=== PATIENT | female | born 1955 | race Two or more races ===

== ENCOUNTER → 2024-06-06 | Outpatient (CLI) | payer MEDICARE, SELFPAY ==
[2024-06-06 10:46] LABS: Collection Type, Urine Clean Catch; RBC,Urine 0 /hpf (0-3)
[2024-06-06 11:27] LABS: Basophils % (Auto) 1 % (0-2.5); Eosinophils # (Auto) 0.2 Thou/mm3 (0.0-0.5); Eosinophils % (Auto) 3 % (0-10); Hematocrit 39.1 % (36.0-46.0); Hemoglobin 13.2 g/dL (12.0-16.0); Immature Granulocytes % (Auto) 1 % (0-0); Immature Granulocytes Auto 0.03 Thou/mm3 (0.00-0.00); Lymphocytes # (Auto) 2.5 Thou/mm3 (1.0-4.8); Lymphocytes % (Auto) 39 % (10-50); Mean Corpuscular HGB Conc 33.8 g/dl (31.0-37.0); Mean Corpuscular Hemoglobin 32.1 pg (25.0-35.0); Mean Corpuscular Volume 95 fL (80-100); Monocytes # (Auto) 0.4 Thou/mm3 (0.0-0.8); Monocytes % (Auto) 6 % (0-12); Neutrophils # (Auto) 3.3 Thou/mm3 (1.8-7.7); Neutrophils % (Auto) 51 % (37-80); Nucleated Red Blood Cell % 0 /100 WBC (0); Platelet Count 281 Thou/mm3 (140-440); Red Blood Count 4.11 Miln/mm3 (4.00-5.20); White Blood Count 6.5 Thou/mm3 (3.6-11.0)
[2024-06-06 11:37] LABS: Bilirubin,Urine Negative (Negative); Blood,Urine Negative (Negative); Clarity,Urine Clear (Clear/Hazy); Color,Urine Yellow (Lt Yel-Yel); Glucose, Urine Negative (Negative); Ketones,Urine Negative (Negative); Leukocyte Esterase,Urine Positive (Negative); Nitrite,Urine Negative (Negative); PH,Urine 5.5 (5.0-7.0); Protein,Urine Trace (Neg - Trace); Specific Gravity,Urine 1.029 (1.001-1.035); Squamous Epithelial Cell,Urine 1 /hpf (0-5); Urobilinogen,Urine Negative mg/dL (0.0-1.0); WBC,Urine 2 /hpf (0-5)
[2024-06-06 11:37] LABS: Glucose Estimated Average 128 mg/dL (80-131); Hemoglobin A1C 6.1 % Hgb (4.8-6.0)
[2024-06-06 11:41] LABS: Alanine Aminotransferase 22 U/L (10-49); Albumin, Serum 4.5 gm/dL (3.4-4.8); Albumin/Globulin Ratio 2.3 (1.2-2.2); Alkaline Phosphatase 85 U/L (46-116); Anion Gap 6 (7-16); Aspartate Amino Transferase 16 U/L (0-34); BUN/Creatinine Ratio 21 Ratio (12-20); Bilirubin,Total 0.6 mg/dL (0.3-1.2); Blood Urea Nitrogen 15 mg/dL (9-23); Calcium 9.1 mg/dL (8.3-10.6); Calcium (Corrected) 9.1 mg/dL (8.5-10.1); Carbon Dioxide 30.6 mMol/L (20.0-31.0); Cardiac Risk Estimate 3.5 RATIO (3.7-5.6); Chloride 105 mMol/L (98-107); Cholesterol 168 mg/dL (132-200); Creatinine (Component) 0.7 mg/dL (0.6-1.3); Glucose 99 mg/dL (74-106); HDL Cholesterol 48 mg/dL (40-60); LDL Cholesterol,Calculated 92 mg/dL (0-130); Osmolality,Calculated 283 (275-295); Potassium 3.8 mMol/L (3.4-5.1); Sodium 142 mMol/L (136-145); Thyroid Stimulating Hormone 0.66 uIU/mL (0.55-4.78); Total Protein 6.5 gm/dL (5.7-8.2); Triglycerides 138 mg/dL (30-150); eGFR > 60 See Note
[2024-06-06 11:47] LABS: Microalbumin, Random Urine 6 mg/L (0-300)
[2024-06-06 11:57] LABS: Creatinine MALB Rnd Ur 259 mg/dL (30-125); Microalbumin Creat Ratio 2 mg/gCrea (<30)
== END | disposition home or self-care (01) ==
LOC: COPL 10:17
PROVIDERS: PCP Family Medicine; Referring Provider Family Medicine; Visit Provider Family Medicine
DX: Z00.00 Encounter for general adult medical examination without abnormal findings (principal); E11.9 Type 2 diabetes mellitus without complications; E78.2 Mixed hyperlipidemia; I10 Essential (primary) hypertension
CPT/HCPCS: 36415; 80053; 80061; 81001; 82043; 82570; 83036; 84443; 85025

== ENCOUNTER 2024-06-18 10:17 | Outpatient (AMB) | payer MEDICARE, SELFPAY ==
[2024-06-18 11:01] VITALS: BP 145/90; PULSE 84; RESP 19; TEMP 35.8; O2SAT 94; BMI 35.8
--- NOTE | 2024-06-18 11:01 | PD.ORTHCLVIS ---
Vital signs 06/18/24 11:01 Height 1.52 m Height Method Stated Weight 82.696 kg Weight Measurement Method Standing Scale BMI 35.8 BP 145/90 H Blood Pressure Source Automatic Cuff Blood Pressure Location Left Upper Arm Position Sitting Respiration 19 Pulse 84 Pulse Source Monitor Temp 96.5 F L Temp Source Temporal Artery Scan Pulse Oximetry (%) 94 L Oxygen Delivery Method Room Air Med/Allergies Allergies & Medications Allergies acetaminophen (From Tylenol) Allergy (Verified 06/18/24 11:01) aspirin Allergy (Verified 06/18/24 11:01) Medication Reconciliation atorvastatin 40 mg tablet 40 mg PO QDAY 02/06/24 [History Confirmed 06/18/24] calcium 600 mg (as carbonate)-vitamin D3 12.5 mcg (500 unit) capsule cap PO 02/06/24 [History Confirmed 06/18/24] gabapentin 100 mg capsule 100 mg PO TID 02/06/24 [History Confirmed 06/18/24] losartan 100 mg tablet 100 mg PO QDAY 02/06/24 [History Confirmed 06/18/24] trazodone 50 mg tablet 50 mg PO QDAY 02/06/24 [History Confirmed 06/18/24] meloxicam 7.5 mg tablet 7.5 mg PO QDAY #45 tabs 02/23/24 [Rx Confirmed 06/18/24] Exam Exam Patient is in no acute distress and is cooperative with the examination today. Breathing is nonlabored. Patient has a normal mood and affect. Bilateral extremities were evaluated and demonstrates sensation intact to light touch. Palpable pedal pulses are present. No significant edema is present. Bilateral hips were examined. The patient has no pain with log roll of the hips. Internal rotation to 30 degrees and external rotation to 30 degrees is painless. Negative FADIR. Left knee was examined today. The left knee is in reasonable alignment. Range of motion from 0-120 degrees. Knee is stable to varus and valgus as well as AP translation with <5mm. Patient has a negative McMurrays. There is no pain with patellofemoral compression and no crepitus noted. The knee is nontender to palpation. The right knee was also examined. The right knee is in [varus] alignment. Range of motion from [0-115] degrees. Knee is stable to varus and valgus as well as AP translation with <5mm. Patient has a [negative] McMurrays. There is [no] pain with patellofemoral compression and [no] crepitus noted. The knee is [tender] to palpation [medially]. Weightbearing x-rays were reviewed. This demonstrates moderate to advanced joint space narrowing Assessment and Plan Problem List (1) Arthritis of right knee: Status: Acute Plan: Patient is a 69-year-old female with right knee pain and right knee arthritis. We discussed nonoperative and operative options. She is failed conservative treatment including injections, anti-inflammatories. We discussed total knee placement is reasonable option as the pain is affecting her quality life and happiness The nature and purpose of the total knee replacement, alternative method(s) of treatment, the material risks involved, and the possibility of complications were fully explained to the patient. The patient does NOT have any of the following contraindications to TKA: - Active infection of the knee joint, OR - Active systemic bacteremia, OR - Active skin infection or open wound at surgical site, OR - Neuropathic arthritis, OR - Severe, rapidly progressive neurological disease, OR - Severe medical condition that makes risks of surgery outweigh the potential benefit The patient was told the most common risks and complications associated with a total knee replacement include, but are not limited to: blood clots in the leg, fatal pulmonary embolism, dislocation of the prosthesis, intraoperative and postoperative fractures of the femur or tibia, infection, failure of the prosthesis or grafting materials, complications from anesthesia, reactions to blood transfusions, postoperative leg length inequality, instability of the knee replacement, nerve damage or injury, vascular injury, delayed wound healing, infection, other injury or even . In addition, there are risks associated with anesthesia given during this operation. Also, the patient was told that after undergoing a total knee replacement there may still be persistent pain or disability. The patient was informed that the success of this operation in part depends upon the mechanical devices which are going to be implanted and that these devices can fail or malfunction, and may need to be repaired or replaced and there are no guarantees as to the longevity of this device or its parts and that it or its parts could fail prematurely. The patient was also notified that during the course of surgery, there may be a need to use bone graft from donors, and that any bone graft used will be carefully screened for communicable diseases, including AIDS, hepatitis, Shane-Creutzfeldt, or other diseases, but despite the screening procedures, there is a small chance that they could contract one of these diseases. Finally, the patient was asked to follow completely and fully with all advice and recommended treatments, and that recovery and ultimate outcome are affected by their compliance with recommended treatment. We discussed the risks, benefits and treatment alternatives, and the patient is interested in proceeding with surgery. We will try to set this up as expeditiously as possible. Advanced Care Planning Discussion Advance care planning discussed with:: patient Office Procedures GNS Level of Care Nursing/Assessment Patient Status: Established Patient Nursing Assessment/Reassesment: Medication Reconciliation, Update PMH in EMR and Vital Signs Coordination of Care: Complex Care and Chronic Disease 1-5, Education Complex Pt/Fam, Consent,records obtained, informed consent, Results/Orders obtained and Staff clarify orders Special Needs: Language special needs Established Patient Charge Established Patient Point Assignment: 95 Established Patient Point Charge: Level 3 (80-115) MA Intake Visit Data Collection New Patient or Established: Established Patient (seen at [facility] within 3 years) Reason for Visit:: 3 MONTH F/U R KNEE INJECTION Seen by Clinical Staff ONLY (RN/MA): No Supply Chain Engineer Required: Yes PCP or OBGYN visit in last 3 months: Yes Hx Now: No Do You Feel Safe at Home: Yes Authorities Contacted: N/A Questionairres Past Medical History Past Medical History Have you ever been diagnosed with any of the following: Cardiology Problems Hypertension: Yes Respiratory Problems Smoking: No Smoking Cessation Counseling: No Smoking Exposure: No Tobacco Use: No Clubbing: No Subjective Visit Visit for: follow up visit, knee (RIGHT) and injections Immunization / Flu Flu Vaccine in the Last 12 Months: No Flu Vaccine Exclusion Criteria: No Exclusion Criteria History of Present Illness Chief complaint: right knee pain Patient is 69-year-old female comes in today for a outpatient referral appointment for right knee. Patient has history of arthritis has been going on since September of this year she has been seen by her primary care doctor for ongoing pain and swelling to her right knee. Since being seen by her PCP she has been treated with gabapentin to 200 mg twice a day and diclofenac ointment that helps ease the pain sometimes but does not fully resolve it. She has not been treated recently with any anti-inflammatory medications. She recently had an injection in February. The injection lasted for 2 months. At this point time the pain is affecting her quality life and happiness Pain Pain level (0-10): 7 Pain duration: CONSTANT Pain location: inside (medial) and anterior Pain quality: aching Pain timing: night, increases with activity and stairs Associated signs & symptoms: none Ambulatory data Ambulatory device: cane Treatments Number of previous injections: 2 Improvement with previous injections: No Improvement with PT: No Improvement with NSAIDS: no Review of Systems Review of Systems: All systems negative unless otherwise noted in HPI.
== END 2024-06-18 11:33 | disposition home or self-care (01) ==
LOC: HODSRG 10:17
PROVIDERS: Supervising Provider Orthopaedic Surgery Adult Reconstructive Orthopaedic Surgery; Visit Provider Orthopaedic Surgery Adult Reconstructive Orthopaedic Surgery
DX: M17.11 Unilateral primary osteoarthritis, right knee (principal); M25.561 Pain in right knee; I10 Essential (primary) hypertension
CPT/HCPCS: 99213; G0463

== ENCOUNTER → 2024-06-20 | Outpatient (CLI) | payer OTHER, SELFPAY ==
--- NOTE | 2024-06-20 12:34 | EKG_ITS ---
[facility] Test Date: 2024-06-20 Pat Name: DARSHAN GUNDERSON Department: Room: - Gender: Female Lookback Coordinator: PHONG : 1955 Requested By: Best Tavera Order Number: [id number] Reading MD: Best Tavera Measurements Intervals [place] Rate: 85 P: -11 AK: 181 QRS: 2 QRSD: 86 T: 0 QT: 351 QTc: 420 Interpretive Statements SINUS RHYTHM POSSIBLE ANTERIOR MYOCARDIAL INFARCTION , PROBABLY OLD POSSIBLE INFERIOR MYOCARDIAL INFARCTION , PROBABLY OLD No previous ECG available for comparison /store/[id number].pdf
[2024-06-20 12:57] LABS: Partial Thromboplastin Time 24.2 Seconds (22.0-36.0); Prothrombin Time 10.5 Seconds (9.0-12.2)
== END | disposition home or self-care (01) ==
LOC: COPL 11:39
PROVIDERS: PCP Family Medicine; Referring Provider Orthopaedic Surgery Adult Reconstructive Orthopaedic Surgery; Visit Provider Orthopaedic Surgery Adult Reconstructive Orthopaedic Surgery
DX: I10 Essential (primary) hypertension (principal); E78.2 Mixed hyperlipidemia; E11.40 Type 2 diabetes mellitus with diabetic neuropathy, unspecified; M25.561 Pain in right knee
CPT/HCPCS: 36415; 85610; 85730; 93005

== ENCOUNTER 2024-09-19 10:27 | Day surgery (SDC) | payer OTHER, SELFPAY ==
[2024-09-17 17:41] VITALS: BMI 31.1
--- NOTE | 2024-09-18 07:00 | EKG_ITS ---
[facility] Test Date: 2024-09-18 Pat Name: DARHSAN GUNDERSON Department: Room: - Gender: Female Union Organizer: STONE : 1955 Requested By: Rock Altamirano Order Number: [id number] Reading MD: Rock Altamirano Measurements Intervals [place] Rate: 66 P: 56 AK: 222 QRS: 6 QRSD: 87 T: -1 QT: 379 QTc: 398 Interpretive Statements SINUS RHYTHM WITH FIRST DEGREE AV BLOCK LOW QRS VOLTAGE IN PRECORDIAL LEADS [QRS DEFLECTION < 1.0 mV IN CHEST LEADS] POSSIBLE ANTERIOR MYOCARDIAL INFARCTION , PROBABLY OLD [30 ms Q WAVE IN V3/V4, OR R < 0.2 mV IN V4] Compared to ECG 06/20/2024 12:38:49 First degree AV block now present Low QRS voltage now present Myocardial infarct finding still present /store/[id number].pdf
[2024-09-18 09:58] LABS: Basophils % (Auto) 1 % (0-2.5); Eosinophils # (Auto) 0.2 Thou/mm3 (0.0-0.5); Eosinophils % (Auto) 3 % (0-10); Hematocrit 39.6 % (36.0-46.0); Hemoglobin 13.3 g/dL (12.0-16.0); Immature Granulocytes % (Auto) 0 % (0-0); Immature Granulocytes Auto 0.01 Thou/mm3 (0.00-0.00); Lymphocytes # (Auto) 2.2 Thou/mm3 (1.0-4.8); Lymphocytes % (Auto) 38 % (10-50); Mean Corpuscular HGB Conc 33.6 g/dl (31.0-37.0); Mean Corpuscular Hemoglobin 32.8 pg (25.0-35.0); Mean Corpuscular Volume 98 fL (80-100); Monocytes # (Auto) 0.3 Thou/mm3 (0.0-0.8); Monocytes % (Auto) 6 % (0-12); Neutrophils % (Auto) 53 % (37-80); Nucleated Red Blood Cell % 0 /100 WBC (0); Platelet Count 285 Thou/mm3 (140-440); RDW Standard Deviation 45.5 fL (36.4-46.3); Red Blood Count 4.06 Miln/mm3 (4.00-5.20); White Blood Count 5.8 Thou/mm3 (3.6-11.0)
[2024-09-18 10:03] LABS: Partial Thromboplastin Time 25.2 Seconds (22.0-36.0); Prothrombin Time 10.6 Seconds (9.0-12.2)
[2024-09-18 10:21] LABS: Anion Gap 8 (7-16); BUN/Creatinine Ratio 19 Ratio (12-20); Blood Urea Nitrogen 13 mg/dL (9-23); Calcium 8.7 mg/dL (8.3-10.6); Carbon Dioxide 26.5 mMol/L (20.0-31.0); Chloride 107 mMol/L (98-107); Creatinine (Component) 0.7 mg/dL (0.6-1.3); Glucose 104 mg/dL (74-106); Osmolality,Calculated 281 (275-295); Potassium 3.9 mMol/L (3.4-5.1); Sodium 141 mMol/L (136-145); eGFR > 60 See Note
[2024-09-19] VITALS (14 sets, daily range): BP systolic 123–161; BP diastolic 64–92; PULSE 62–76; RESP 17–22; TEMP 36.4–36.7; O2SAT 94–98; BMI 31.4
--- NOTE | 2024-09-19 14:10 | PD.CARDCATH ---
Cardiac Cath Procedure Procedure Name Date of procedure: 09/19/2024 PROCEDURE PERFORMED: 1. Successful complex PCI of the mid LCx with a 3.0 x 15 mm Farzad INDER stent with excellent results and no residual stenosis or complications 2. Left heart cardiac catheterization including right, left coronary angiograms and left ventriculogram 2. Ultrasound-guided access of the right radial artery 3. Conscious sedation for 30 minutes FURNITURE SALES ASSOCIATE: Rock Altamirano MD Procedure Narrative HISTORY AND INDICATIONS: Ms. Dunbar is a 69 year old female with past medical history significant for HTN, HLD, T2DM diet controlled, degenerative bone disease and neuropathetic in right leg after shingles in 2022, initially presented to the office for cardiac risk evaluation for right total knee replacement surgery. Patient complained of chest pressure and palpitations. She had ischemic cardiac work up and NST showed mildly decreased uptake at the inferolateral segment, indicates possible ischemia with EF 74% and normal TID. Patient was brought in for an elective cardiac catheterization. All the risk benefits and alternatives of left heart cardiac attrition were explained in detail including the risk of bleeding, heart attack, stroke and in detail. Patient agreeable for the procedure and provided the consent. H&P updated. DESCRIPTION OF PROCEDURE: The patient was brought to the cardiac catheterization lab analysis the precautions were followed. Patient was given Versed and fentanyl for moderate conscious sedation. 2 mL of lidocaine was given in the right wrist. The right radial artery was accessed via the ultrasound guidance as well as micropuncture technique. A 6 Nigerian glide sheath was introduced. We then used a 6 Nigerian TIG 4 catheter to perform the left coronary angiogram as well as a left ventriculogram which showed the following findings. A EBU 3.5 guide catheter was used for right coronary angiogram as well as performing the PCI of the mid LCx. 1. Right dominant circulation 2. Left main artery is a large artery without any Significant disease 2. LAD arises artery with moderate stenosis in the mid LAD of 60 to 70%. Diagonal 1 with mild 20% stenosis, rest of small diagonals without any significant disease. 3. LCx is a large size artery with severe disease in the mid segment with 80-90% stenosis. OM1 and OM 2 are medium sized artery without any significant disease. 4. RCA is large size artery with mild 20-30% stenosis at the bifurcation of RPL and RPDA. 5. LVEF is normal at 55 to 60% with an LVEDP of 18 mmHg. There was no significant transvalvular aortic gradient INTERVENTION: A 6 Nigerian JL 3.5 SH guide was used to engage the right coronary artery. Patient was given weight-based heparin and ACT was greater than 250 although the procedure. Patient was loaded with aspirin 325 mg and brillinta 180 mg. Run-through guidewire was used to cross the lesion in the mid LCx without any complications. We then use a second run-through wire as sentinel wire to adjust the position of the balloon or the stent of the mid LCx lesion. A 2.5 x 15 mm balloon was used for predilatation and was predilated multiple times at 10 michael. We then used 3.0 x 15 mm Farzad INDER stent at 12 michael for a total of 40 seconds. Excellent results achieved with DELANEY-3 flow and no other complications. Final angiographic pictures were taken and all interventional equipment was removed. ACC data: Preprocedure:- mid LCx with 80 to 90% stenosis with DELANEY-3 flow Post procedure: mid LCx with 0% residual stenosis with DELANEY-3 flow A radial band was used to achieve the hemostasis of the right radial artery access. Patient will be monitored in the cardiac Obstetrical Anesthesiologist for the next 2 to 3 hours and will be discharged home later if hemodynamically stable. Complications: None Specimens: None Blood loss: Estimated 10 ML Summary/findings: 1. LHC showed severe CAD with 80-90% stenosis of mid LCx, moderate 70% stenosis of mid LAD, and mild disease of Diagonal 1 and RCA at the bifurcation of RPDA and RPL. Rest of the coronary arteries showed no significant disease. 2. LVEF was normal at 55 to 60% with normal LVEDP. No significant transvalvular aortic gradient noted. 3. Successful complex PCI performed of the mid LCx with 3.0 x 15 mm Farzad INDER stent with excellent results and no complications. Recommendations: 1. Recommended dual antiplatelet therapy with aspirin 81 mg once daily lifetime and Brilinta 90 mg twice daily for at least 1 year. High intensity statin and beta-blockers to be continued 2. Recommend aggressive risk factor modification 3. Patient recommended not to lift any weight more than 5 to 10 pounds for the next 7 days and follow-up with me in the office in 7 days. Rock Altamirano MD Interventional Cardiology.
--- NOTE | 2024-09-19 14:29 | PC.NURSE ---
1429 patient is awake, alert, breathing unlabored, TR band present to right wrist, no bleeding or hematoma noted. Report received from Meka ARMANDO, patient to recover for 4 hrs. May start removing air from TR band 1628, 2hr post hemostais time. Start brilinta tonight and then BID. Continue aspirin tomorrow.
--- NOTE | 2024-09-19 16:39 | PC.NURSE ---
1615 patient is awake, alert, breathing unlabored, able to tolerate sandwich with no nausea or vomiting, TR band to right wrist, no bleeding or hematoma noted, report given to Jose Guadalupe ARMANDO.
[2024-09-19] MEDS: TICAGRELOR 90 MG TABLET PO (18:26)
--- NOTE | 2024-09-19 18:52 | PC.NURSE ---
90mg Brilinta po given to patient before discharge, Patient and son informed to go to [facility] office tomorrow 09/20/24 at 9am
== END 2024-09-19 18:40 | disposition home or self-care (01) ==
PROVIDERS: PCP Family Medicine; Referring Provider Internal Medicine Cardiovascular Disease; Visit Provider Internal Medicine Cardiovascular Disease
PROC: (CPT 93458; principal; 2024-09-19 12:30)
DX: I25.119 Atherosclerotic heart disease of native coronary artery with unspecified angina pectoris (principal); Z01.810 Encounter for preprocedural cardiovascular examination; I10 Essential (primary) hypertension; E78.5 Hyperlipidemia, unspecified; E11.9 Type 2 diabetes mellitus without complications
CPT/HCPCS: 93458; C9600; 36415; 80048; 85025; 85347; 85610; 85730; 93005; 99152; 99153; A4649; C1725; C1769; C1874; C1887; C1894; J0153; J0171; J0282; J0461; J1643; J2250; J2310; J2371; J3010; J3490; A9270

== ENCOUNTER → 2024-10-21 | Outpatient (CLI) | payer MEDICARE, MEDICAID, SELFPAY ==
[2024-10-21 09:43] LABS: Alanine Aminotransferase 19 U/L (10-49); Albumin, Serum 4.3 gm/dL (3.4-4.8); Alkaline Phosphatase 68 U/L (46-116); Anion Gap 11 (7-16); BUN/Creatinine Ratio 24 Ratio (12-20); Bilirubin,Total 0.5 mg/dL (0.3-1.2); Blood Urea Nitrogen 17 mg/dL (9-23); Calcium 9.1 mg/dL (8.3-10.6); Calcium (Corrected) 9.1 mg/dL (8.5-10.1); Carbon Dioxide 25.9 mMol/L (20.0-31.0); Cardiac Risk Estimate 2.8 RATIO (3.7-5.6); Chloride 108 mMol/L (98-107); Cholesterol 129 mg/dL (132-200); Creatinine (Component) 0.7 mg/dL (0.6-1.3); Globulin 2.2 gm/dL (2.3-3.5); Glucose 105 mg/dL (74-106); HDL Cholesterol 46 mg/dL (40-60); LDL Cholesterol,Calculated 58 mg/dL (0-130); Osmolality,Calculated 290 (275-295); Potassium 3.8 mMol/L (3.4-5.1); Sodium 145 mMol/L (136-145); Total Protein 6.5 gm/dL (5.7-8.2); Triglycerides 123 mg/dL (30-150); eGFR > 60 See Note
[2024-10-21 10:20] LABS: Glucose Estimated Average 123 mg/dL (80-131); Hemoglobin A1C 5.9 % Hgb (4.8-6.0)
== END | disposition home or self-care (01) ==
LOC: COPL 08:13
PROVIDERS: PCP Family Medicine; Referring Provider Family Medicine; Visit Provider Internal Medicine Cardiovascular Disease
DX: E11.40 Type 2 diabetes mellitus with diabetic neuropathy, unspecified (principal); E78.2 Mixed hyperlipidemia; I10 Essential (primary) hypertension
CPT/HCPCS: 36415; 80053; 80061; 83036

== ENCOUNTER 2025-02-04 14:11 | Outpatient (AMB) | payer MEDICARE, MEDICAID, SELFPAY ==
--- NOTE | 2025-02-04 14:16 | PD.ORTHCLVIS ---
Vital signs 02/04/25 14:22 Height 1.52 m Height Method Measured Weight 79.124 kg Weight Measurement Method Standing Scale BMI 34.2 BP 107/67 Blood Pressure Source Automatic Cuff Blood Pressure Location Left Upper Arm Position Sitting Respiration 20 Pulse 79 Pulse Source Monitor Temp 98.3 F Temp Source Temporal Artery Scan Pulse Oximetry (%) 96 Oxygen Delivery Method Room Air Med/Allergies Allergies & Medications Allergies acetaminophen (From Tylenol) Allergy (Verified 02/04/25 14:23) Medication Reconciliation atorvastatin 40 mg tablet 40 mg PO QDAY 02/06/24 [History Confirmed 02/04/25] calcium 600 mg (as carbonate)-vitamin D3 12.5 mcg (500 unit) capsule 1 cap PO BID 02/06/24 [History Confirmed 02/04/25] gabapentin 100 mg capsule 100 mg PO TID 02/06/24 [History Confirmed 02/04/25] trazodone 50 mg tablet 50 mg PO QDAY 02/06/24 [History Confirmed 02/04/25] meloxicam 7.5 mg tablet 7.5 mg PO QDAY #45 tabs 06/18/24 [Rx Confirmed 02/04/25] aspirin 81 mg capsule 81 mg PO QDAY 09/19/24 [History Confirmed 02/04/25] diclofenac sodium 1 % topical gel 2 g topical TID 09/19/24 [History Confirmed 02/04/25] losartan 100 mg-hydrochlorothiazide 25 mg tablet 1 tab PO DAILY 09/19/24 [History Confirmed 02/04/25] metoprolol succinate 25 mg tablet,extended release 24 hr 25 mg PO QDAY 09/19/24 [History Confirmed 02/04/25] omeprazole 20 mg capsule,delayed release 20 mg PO QDAY PRN heartburn 09/19/24 [History Confirmed 02/04/25] ticagrelor 90 mg tablet (Brilinta) 90 mg PO BID #60 tabs 09/19/24 [Rx Confirmed 02/04/25] triamcinolone acetonide 0.1 % topical ointment 1 applic topical BID 09/19/24 [History Confirmed 02/04/25] Exam Exam Patient is in no acute distress and is cooperative with the examination today. Breathing is nonlabored. Patient has a normal mood and affect. Bilateral extremities were evaluated and demonstrates sensation intact to light touch. Palpable pedal pulses are present. No significant edema is present. Bilateral hips were examined. The patient has no pain with log roll of the hips. Internal rotation to 30 degrees and external rotation to 30 degrees is painless. Negative FADIR. Left knee was examined today. The left knee is in reasonable alignment. Range of motion from 0-120 degrees. Knee is stable to varus and valgus as well as AP translation with <5mm. Patient has a negative McMurrays. There is no pain with patellofemoral compression and no crepitus noted. The knee is nontender to palpation. The right knee was also examined. The right knee is in [varus] alignment. Range of motion from [0-115] degrees. Knee is stable to varus and valgus as well as AP translation with <5mm. Patient has a [negative] McMurrays. There is [no] pain with patellofemoral compression and [no] crepitus noted. The knee is [tender] to palpation [medially]. Weightbearing x-rays were reviewed. This demonstrates moderate to advanced joint space narrowing Assessment and Plan Problem List (1) Arthritis of right knee: Status: Acute Plan: ASSESSMENT AND PLAN 1. Right knee arthritis. Significant pain is reported, particularly on the inside of the knee. A new knee brace will be provided as the current one at home does not feel safe. Knee replacement surgery will be scheduled for 03/2025 or later, pending cardiac clearance. A pamphlet in [place] detailing information about the knee surgery was provided. Patient is a 69-year-old female with right knee pain and right knee arthritis. We discussed nonoperative and operative options. She is failed conservative treatment including injections, anti-inflammatories. We discussed total knee placement is reasonable option as the pain is affecting her quality life and happiness The nature and purpose of the total knee replacement, alternative method(s) of treatment, the material risks involved, and the possibility of complications were fully explained to the patient. The patient does NOT have any of the following contraindications to TKA: - Active infection of the knee joint, OR - Active systemic bacteremia, OR - Active skin infection or open wound at surgical site, OR - Neuropathic arthritis, OR - Severe, rapidly progressive neurological disease, OR - Severe medical condition that makes risks of surgery outweigh the potential benefit The patient was told the most common risks and complications associated with a total knee replacement include, but are not limited to: blood clots in the leg, fatal pulmonary embolism, dislocation of the prosthesis, intraoperative and postoperative fractures of the femur or tibia, infection, failure of the prosthesis or grafting materials, complications from anesthesia, reactions to blood transfusions, postoperative leg length inequality, instability of the knee replacement, nerve damage or injury, vascular injury, delayed wound healing, infection, other injury or even . In addition, there are risks associated with anesthesia given during this operation. Also, the patient was told that after undergoing a total knee replacement there may still be persistent pain or disability. The patient was informed that the success of this operation in part depends upon the mechanical devices which are going to be implanted and that these devices can fail or malfunction, and may need to be repaired or replaced and there are no guarantees as to the longevity of this device or its parts and that it or its parts could fail prematurely. The patient was also notified that during the course of surgery, there may be a need to use bone graft from donors, and that any bone graft used will be carefully screened for communicable diseases, including AIDS, hepatitis, Shane-Creutzfeldt, or other diseases, but despite the screening procedures, there is a small chance that they could contract one of these diseases. Finally, the patient was asked to follow completely and fully with all advice and recommended treatments, and that recovery and ultimate outcome are affected by their compliance with recommended treatment. We discussed the risks, benefits and treatment alternatives, and the patient is interested in proceeding with surgery. We will try to set this up as expeditiously as possible. Advanced Care Planning Discussion Advance care planning discussed with:: patient Office Procedures GNS Level of Care Nursing/Assessment Patient Status: Established Patient Nursing Assessment/Reassesment: Medication Reconciliation, Update PMH in EMR and Vital Signs Coordination of Care: Complex Care and Chronic Disease 1-5, Education Complex Pt/Fam, Consent,records obtained, informed consent, Results/Orders obtained and Staff clarify orders Special Needs: Language special needs Established Patient Charge Established Patient Point Assignment: 95 Established Patient Point Charge: Level 3 (80-115) MA Intake Visit Data Collection New Patient or Established: Established Patient (seen at [facility] within 3 years) Reason for Visit:: 3 MONTH F/U R KNEE INJECTION Seen by Clinical Staff ONLY (RN/MA): No Field Pipe Lines Supervisor Required: Yes PCP or OBGYN visit in last 3 months: Yes Hx Now: No Do You Feel Safe at Home: Yes Authorities Contacted: N/A Questionairres Past Medical History Past Medical History Have you ever been diagnosed with any of the following: Cardiology Problems Hypercholesterolemia: Yes Congestive Heart Failure: No Hypertension: Yes Respiratory Problems Chronic Obstructive Pulmonary Disease (COPD): No Smoking: No Smoking Cessation Counseling: No Smoking Exposure: No Tobacco Use: No Clubbing: No Genital/Urinary Problems Renal Disease: No Reproductive Problems Previous Pregnancies: Yes (x4) Endocrine Problems Diabetes Mellitus Type 1: No Other Problems Blood Transfusions: No Blood Transfusion Reaction: No Anesthesia Reactions: No Cancer: No Surgical History Hysterectomy: No Pacemaker: No Subjective Visit Visit for: follow up visit, knee (RIGHT) and injections Immunization / Flu Flu Vaccine in the Last 12 Months: No Flu Vaccine Exclusion Criteria: No Exclusion Criteria History of Present Illness Chief complaint: right knee pain HISTORY OF PRESENT ILLNESS I, Best Tavera, have obtained verbal consent from the patient, to be recorded during this encounter which may include, but not limited to, medical history, examination, treatment plans, and relevant health information.? Patient was informed that recording will be read and reviewed by myself before inclusion in the medical chart. The patient is a 70-year-old female who presents with right knee pain and right knee arthritis. She reports experiencing significant pain in her right knee, particularly on the inner side. She was last seen in June 2024, at which time surgical intervention was discussed but postponed due to her cardiac condition. She had a cold and a severe sweating episode in November 2024, which prevented her from getting clearance for surgery at that time. Her small engine specialist plans to see her either at the beginning or middle of February 2025 to provide the necessary clearance, provided she remains symptom-free. She expresses discomfort in using the knee brace she currently has at home and is seeking a new one. She had some procedures done to her heart in September 2024. Pain Pain level (0-10): 7 Pain duration: CONSTANT Pain location: inside (medial) and anterior Pain quality: aching Pain timing: night, increases with activity and stairs Associated signs & symptoms: none Ambulatory data Ambulatory device: cane Treatments Number of previous injections: 2 Improvement with previous injections: No Improvement with PT: No Improvement with NSAIDS: no Review of Systems Review of Systems: All systems negative unless otherwise noted in HPI.
[2025-02-04 14:22] VITALS: BP 107/67; PULSE 79; RESP 20; TEMP 36.8; O2SAT 96; BMI 34.2
--- NOTE | 2025-02-04 14:29 | XR_ITS ---
Examination: Right knee 4 views TECHNIQUE: AP oblique lateral axial right knee 4 views Date and time: February 04, 2025 1506 hours INDICATIONS: Knee pain one year. FINDINGS: Advanced tricompartment osteoarthritis including severe narrowing patellofemoral medial joints No fracture or dislocation IMPRESSION: Advanced right knee tricompartment osteoarthritis
== END 2025-02-04 14:30 | disposition home or self-care (01) ==
PROVIDERS: PCP Family Medicine; Referring Provider Family Medicine; Supervising Provider Orthopaedic Surgery Adult Reconstructive Orthopaedic Surgery; Visit Provider Orthopaedic Surgery Adult Reconstructive Orthopaedic Surgery
DX: M17.11 Unilateral primary osteoarthritis, right knee (principal); M25.561 Pain in right knee; I10 Essential (primary) hypertension; E78.00 Pure hypercholesterolemia, unspecified
CPT/HCPCS: 73564; 99213; G0463

== ENCOUNTER 2025-05-06 10:38 | Outpatient (AMB) | payer MEDICARE, MEDICAID, SELFPAY ==
--- NOTE | 2025-05-06 11:05 | ORTHONT_ITS ---
Vital signs 05/06/25 11:14 Height 1.52 m Height Method Stated Weight 80.513 kg Weight Measurement Method Standing Scale BMI 34.8 BP 110/72 Blood Pressure Source Automatic Cuff Blood Pressure Location Left Upper Arm Position Sitting Respiration 18 Pulse 79 Pulse Source Monitor Temp 98.4 F Temp Source Temporal Artery Scan Pulse Oximetry (%) 96 Oxygen Delivery Method Room Air Med/Allergies Allergies & Medications Allergies acetaminophen (From Tylenol) Allergy (Verified 05/06/25 11:15) Medication Reconciliation atorvastatin 40 mg tablet 40 mg PO QDAY 02/06/24 [History Confirmed 05/06/25] calcium 600 mg (as carbonate)-vitamin D3 12.5 mcg (500 unit) capsule 1 cap PO BID 02/06/24 [History Confirmed 05/06/25] gabapentin 100 mg capsule 100 mg PO TID 02/06/24 [History Confirmed 05/06/25] trazodone 50 mg tablet 50 mg PO QDAY 02/06/24 [History Confirmed 05/06/25] meloxicam 7.5 mg tablet 7.5 mg PO QDAY #45 tabs 06/18/24 [Rx Confirmed 05/06/25] aspirin 81 mg capsule 81 mg PO QDAY 09/19/24 [History Confirmed 05/06/25] diclofenac sodium 1 % topical gel 2 g topical TID 09/19/24 [History Confirmed 05/06/25] losartan 100 mg-hydrochlorothiazide 25 mg tablet 1 tab PO DAILY 09/19/24 [Histor y Confirmed 05/06/25] metoprolol succinate 25 mg tablet,extended release 24 hr 25 mg PO QDAY 09/19/24 [History Confirmed 05/06/25] omeprazole 20 mg capsule,delayed release 20 mg PO QDAY PRN heartburn 09/19/24 [History Confirmed 05/06/25] ticagrelor 90 mg tablet (Brilinta) 90 mg PO BID #60 tabs 09/19/24 [Rx Confirmed 05/06/25] triamcinolone acetonide 0.1 % topical ointment 1 applic topical BID 09/19/24 [History Confirmed 05/06/25] Exam Exam Patient is in no acute distress and is cooperative with the examination today. Breathing is nonlabored. Patient has a normal mood and affect. Bilateral extremities were evaluated and demonstrates sensation intact to light touch. Palpable pedal pulses are present. No significant edema is present. Bilateral hips were examined. The patient has no pain with log roll of the hips. Internal rotation to 30 degrees and external rotation to 30 degrees is painless. Negative FADIR. Left knee was examined today. The left knee is in reasonable alignment. Range of motion from 0-120 degrees. Knee is stable to varus and valgus as well as AP translation with <5mm. Patient has a negative McMurrays. There is no pain with patellofemoral compression and no crepitus noted. The knee is nontender to palpation. The right knee was also examined. The right knee is in [varus] alignment. Range of motion from [0-115] degrees. Knee is stable to varus and valgus as well as AP translation with <5mm. Patient has a [negative] McMurrays. There is [no] pain with patellofemoral compression and [no] crepitus noted. The knee is [tender] to palpation [medially]. Weightbearing x-rays were reviewed. This demonstrates moderate to advanced joint space narrowing Assessment and Plan Problem List (1) Arthritis of right knee: Status: Acute Plan: ASSESSMENT AND PLAN 1. Right knee arthritis. Patient is a 69-year-old female with right knee pain and right knee arthritis. We discussed nonoperative and operative options. She is failed conservative treatment including injections, anti-inflammatories. We discussed total knee placement is reasonable option as the pain is affecting her quality life and happiness The nature and purpose of the total knee replacement, alternative method(s) of treatment, the material risks involved, and the possibility of complications were fully explained to the patient. The patient does NOT have any of the following contraindications to TKA: - Active infection of the knee joint, OR - Active systemic bacteremia, OR - Active skin infection or open wound at surgical site, OR - Neuropathic arthritis, OR - Severe, rapidly progressive neurological disease, OR - Severe medical condition that makes risks of surgery outweigh the potential benefit The patient was told the most common risks and complications associated with a total knee replacement include, but are not limited to: blood clots in the leg, fatal pulmonary embolism, dislocation of the prosthesis, intraoperative and postoperative fractures of the femur or tibia, infection, failure of the prosthesis or grafting materials, complications from anesthesia, reactions to blood transfusions, postoperative leg length inequality, instability of the knee replacement, nerve damage or injury, vascular injury, delayed wound healing, infection, other injury or even . In addition, there are risks associated with anesthesia given during this operation. Also, the patient was told that after undergoing a total knee replacement there may still be persistent pain or disability. The patient was informed that the success of this operation in part depends upon the mechanical devices which are going to be implanted and that these devices can fail or malfunction, and may need to be repaired or replaced and there are no guarantees as to the longevity of this device or its parts and that it or its parts could fail prematurely. The patient was also notified that during the course of surgery, there may be a need to use bone graft from donors, and that any bone graft used will be carefully screened for communicable diseases, including AIDS, hepatitis, Shane-Creutzfeldt, or other diseases, but despite the screening procedures, there is a small chance that they could contract one of these diseases. Finally, the patient was asked to follow completely and fully with all advice and recommended treatments, and that recovery and ultimate outcome are affected by their compliance with recommended treatment. We discussed the risks, benefits and treatment alternatives, and the patient is interested in proceeding with surgery. We will try to set this up as expeditiously as possible. Advanced Care Planning Discussion Advance care planning discussed with:: patient Office Procedures GNS Level of Care Nursing/Assessment Patient Status: Established Patient Nursing Assessment/Reassesment: Medication Reconciliation, Update PMH in EMR and Vital Signs Coordination of Care: Complex Care and Chronic Disease 1-5, Education Complex Pt/Fam, Consent,records obtained, informed consent, Results/Orders obtained and Staff clarify orders Established Patient Charge Established Patient Point Assignment: 95 Established Patient Point Charge: EP Level 3 (80-115) MA Intake Visit Data Collection New Patient or Established: Established Patient (seen at [facility] within 3 years) Reason for Visit:: PRE OP R TKA Seen by Clinical Staff ONLY (RN/MA): No Die Barber Required: Yes PCP or OBGYN visit in last 3 months: Yes Hx Now: No Do You Feel Safe at Home: Yes Authorities Contacted: N/A Questionairres Past Medical History Past Medical History Have you ever been diagnosed with any of the following: Cardiology Problems Hypercholesterolemia: Yes Congestive Heart Failure: No Hypertension: Yes Respiratory Problems Chronic Obstructive Pulmonary Disease (COPD): No Smoking: No Smoking Cessation Counseling: No Smoking Exposure: No Tobacco Use: No Clubbing: No Genital/Urinary Problems Renal Disease: No Reproductive Problems Previous Pregnancies: Yes (x4) Endocrine Problems Diabetes Mellitus Type 1: No Other Problems Blood Transfusions: No Blood Transfusion Reaction: No Anesthesia Reactions: No Cancer: No Surgical History Hysterectomy: No Pacemaker: No Subjective Visit Visit for: follow up visit Immunization / Flu Flu Vaccine in the Last 12 Months: No Flu Vaccine Exclusion Criteria: No Exclusion Criteria History of Present Illness Chief complaint: right knee pain HISTORY OF PRESENT ILLNESS I, Best Tavera, have obtained verbal consent from the patient, to be recorded during this encounter which may include, but not limited to, medical history, examination, treatment plans, and relevant health information.? Patient was informed that recording will be read and reviewed by myself before inclusion in the medical chart. The patient is a 70-year-old female who presents with right knee pain and right knee arthritis. She reports experiencing significant pain in her right knee, particularly on the inner side. She was last seen in June 2024, at which time surgical intervention was discussed but postponed due to her cardiac condition. She had a cold and a severe sweating episode in November 2024, which prevented her from getting clearance for surgery at that time. Her treating plant supervisor plans to see her either at the beginning or middle of February 2025 to provide the necessary clearance, provided she remains symptom-free. She expresses discomfort in using the knee brace she currently has at home and is seeking a new one. She had some procedures done to her heart in September 2024. Pain Pain level (0-10): 7 Pain duration: CONSTANT Pain location: inside (medial) and anterior Pain quality: aching Pain timing: night, increases with activity and stairs Associated signs & symptoms: none Ambulatory data Ambulatory device: cane Treatments Number of previous injections: 2 Improvement with previous injections: No Improvement with PT: No Improvement with NSAIDS: no Review of Systems Review of Systems: All systems negative unless otherwise noted in HPI.
[2025-05-06 11:14] VITALS: BP 110/72; PULSE 79; RESP 18; TEMP 36.9; O2SAT 96; BMI 34.8
== END 2025-05-06 11:34 | disposition home or self-care (01) ==
LOC: HODSRG 10:38
PROVIDERS: PCP Family Medicine; Referring Provider Family Medicine; Supervising Provider Orthopaedic Surgery Adult Reconstructive Orthopaedic Surgery; Visit Provider Orthopaedic Surgery Adult Reconstructive Orthopaedic Surgery
DX: M17.11 Unilateral primary osteoarthritis, right knee (principal); M25.561 Pain in right knee; I10 Essential (primary) hypertension
CPT/HCPCS: 99213; G0463

== ENCOUNTER → 2025-05-06 | Outpatient (CLI) | payer MEDICARE, MEDICAID, SELFPAY ==
--- NOTE | 2025-05-06 12:00 | XR_ITS ---
Examination: CT right lower extremity, without contrast. 2-D sagittal reconstructions. 2-D coronal reconstructions. 3-D reconstructions. Date and time of exam: May 06, 2025, 1213 hours INDICATIONS: Diagnosis primary unilateral osteoarthritis right knee, right knee pain 2 years. CTDI: vol (mGy): 12.8 DLP: (mGycm): 966 Technique: Multiple 1.25 mm axial sections of the right lower extremity without intravenous contrast have been obtained. 2-D sagittal and coronal reconstructions have been obtained. 3-D reconstructions have been obtained. Low dose protocols were performed. One or more of the following dose reduction techniques were used; automated exposure control, adjustment of the mA and/or KV according to patient size, use of iterative reconstruction technique. Findings: Significant osteopenia Moderate narrowing right hip joint No right hip fracture or dislocation Severe narrowing medial joint space right knee Significant osteoarthritis lateral patellofemoral joints No fracture IMPRESSION: Advanced right knee tricompartment osteoarthritis including severe narrowing medial joint space right knee
== END | disposition home or self-care (01) ==
LOC: CCTX 11:46
PROVIDERS: PCP Family Medicine; Referring Provider Orthopaedic Surgery Adult Reconstructive Orthopaedic Surgery; Visit Provider Orthopaedic Surgery Adult Reconstructive Orthopaedic Surgery
DX: M17.11 Unilateral primary osteoarthritis, right knee (principal); M25.861 Other specified joint disorders, right knee
CPT/HCPCS: 73700